=== PATIENT | female | born 1995 | race Caucasian/White ===

== ENCOUNTER 2021-08-25 13:37 | Inpatient (IN) ==
[2021-08-25] MEDS ORDERED: Lidocaine 1% 20 ML MDV INFILT PRN (13:41)
[2021-08-25] MEDS ORDERED: Ondansetron 4 MG/2 ML VIAL IVP PRN (13:41)
[2021-08-25] MEDS ORDERED: Famotidine 20 MG/2 ML VIAL IVP PRN (13:41)
[2021-08-25] MEDS ORDERED: Metoclopramide 10 MG/2 ML VIAL IVP PRN (13:41)
[2021-08-25] MEDS ORDERED: *HR* Nalbuphine 10 MG/ML AMPUL IV PRN (13:41)
[2021-08-25] MEDS ORDERED: Naloxone 0.4 MG/ML INJ IVP PRN (13:41)
[2021-08-25] MEDS ORDERED: Ringers Solution, Lactated 1,000 ML IVC SCH (13:45)
[2021-08-25] MEDS ORDERED: Penicillin G Potassium 5,000,000 UNIT in 0.9 % Sodium Chloride Mini Bag 100 ML IVPB ONE (14:36)
[2021-08-25 14:45] LABS: Basophils % 0.1 %; Eosinophils # 0.1 K/mcL (0.0-0.6); Eosinophils % 0.4 %; Hematocrit 35.3 % (35.3-44.9); Immature Granulocytes % 0.3 % (0-4); Lymphocytes # 1.5 K/mcL (0.6-4.6); Lymphocytes % 13.7 %; Mean Corpuscular HGB Conc 31.2 g/dL (31.6-35.5); Mean Corpuscular Hemoglobin 23.5 pg (28.0-33.3); Mean Corpuscular Volume 75.3 fL (83.0-100.0); Mean Platelet Volume 10.4 fL (9.4-12.4); Monocytes # 0.7 K/mcL (0.0-1.3); Monocytes % 6.1 %; Neutrophils # 8.8 K/mcL (1.6-8.9); Platelet Count 371 K/mcL (140-400); Red Blood Count 4.69 M/mcL (3.82-4.97); Red Cell Distribution Width 15.9 % (11.5-14.5); Segmented Neutrophils % 79.4 %; White Blood Count 11.1 K/mcL (4.3-11.1)
[2021-08-25 15:04] LABS: Alanine Aminotransferase 9 Units/L (7-52); Aspartate Amino Transferase 14 Units/L (13-39); BUN/Creatinine Ratio 25 (6-26); Blood Urea Nitrogen 12 mg/dL (6-20); Lactate Dehydrogenase 163 Units/L (140-271); Uric Acid 6.5 mg/dL (2.3-7.6); eGFR For African Americans > 60 (> 60); eGFR For Non-African Americans > 60 (> 60)
[2021-08-25] MEDS ORDERED: miSOPROStoL 25 MCG TABLET PO PRN (15:22)
[2021-08-25 15:29] LABS: Influenza A PCR Negative (Negative); Influenza B PCR Negative (Negative); Resp. Syncytial Virus PCR Negative (Negative)
[2021-08-25 15:42] LABS: SARS-CoV-2 by PCR (In House) Negative (Negative)
[2021-08-25 15:52] LABS: Bacteria,Urine Few per hpf (None-Few); Bilirubin,Urine Negative (Negative); Blood,Urine Negative (Negative); Clarity,Urine Turbid (Clear); Color,Urine Light-Yellow (Yellow); Glucose,Urine (UA) Normal (Normal); Ketones,Urine Negative (Negative); Leukocyte Esterase,Urine Negative (Negative); Mucus,Urine Few per lpf (None-Few); Nitrite,Urine Negative (Negative); Protein,Urine 30 mg/dL (Neg-Trace); RBC,Urine 0-3 per hpf (0-3); Specific Gravity,Urine 1.023 (1.010-1.025); Squamous Epithelial Cell,Urine Moderate per hpf (None-Few); Urobilinogen,Urine Normal (Normal)
[2021-08-25 15:59] LABS: Amphetamine Screen,Urine Negative ng/mL (Cutoff=1000); Barbiturate Screen,Urine Negative ng/mL (Cutoff=200); Benzodiazepines Screen,Urine Negative ng/mL (Cutoff=200); Cannabinoid Screen,Urine Negative ng/mL (Cutoff = 50); Cocaine Screen,Urine Negative ng/mL (Cutoff= 300); Creatinine,Urine 129 mg/dL; Opiate Screen,Urine Negative ng/mL (Cutoff=300); Phencyclidine Screen,Urine Negative ng/mL (Cutoff=25); Protein/Creatinine Ratio,Urine 0.34 mg/mg (0.00-0.20)
[2021-08-25] MEDS ORDERED: EPHEDrine 50 MG/ML VIAL IVP PRN ×2 (18:51→18:52)
[2021-08-25] MEDS ORDERED: Penicillin G Potassium 2,500,000 UNIT/105 ML MLS IVPB SCH (19:00)
[2021-08-25] MEDS ORDERED: Epidural Premix (fent/bupiv) 110 ML EP SCH (19:00)
[2021-08-25] MEDS ORDERED: Oxytocin 20 units/ LR 1000 mL 20 UNIT/1,000 ML BAG IVC SCH (20:30)
[2021-08-26] MEDS ORDERED: CeFAZolin 2,000 MG/120 ML BAG IVPB ONE
[2021-08-26] MEDS ORDERED: Ondansetron 4 MG/2 ML VIAL ONE (00:27)
[2021-08-26] MEDS ORDERED: Ketorolac 30 MG/ML VIAL ONE (00:27)
[2021-08-26] MEDS ORDERED: Acetaminophen IV 1,000 MG/100 ML BAG IVPB ONE (00:33)
[2021-08-26] MEDS ORDERED: *HR* Morphine Sulfate/PF 10 MG/10 ML AMPUL ONE (00:50)
[2021-08-26] MEDS ORDERED: 0.9 % Sodium Chloride 500 ML ONE (01:36)
[2021-08-26] MEDS ORDERED: Rho Immune Globulin 1,500 UNIT SYRINGE IM ONE (03:58)
[2021-08-26] MEDS ORDERED: Metoclopramide 10 MG/2 ML VIAL IVP PRN (03:58)
[2021-08-26] MEDS ORDERED: Ringers Solution, Lactated 1,000 ML IVC SCH (03:58)
[2021-08-26] MEDS ORDERED: Ondansetron 4 MG/2 ML VIAL IVP PRN (03:58)
[2021-08-26] MEDS ORDERED: Oxytocin 20 units/ LR 1000 mL 20 UNIT/1,000 ML BAG IVC SCH ×2 (03:58)
[2021-08-26] MEDS ORDERED: Simethicone 80 MG TAB.CHEW PO PRN (03:58)
[2021-08-26] MEDS: Acetaminophen 325 MG TABLET PO SCH ×3 (04:25→21:37)
[2021-08-26] MEDS: Ibuprofen 600 MG TABLET PO SCH ×3 (04:26→21:37)
[2021-08-26] MEDS: cephALEXin 500 MG CAPSULE PO SCH ×3 (08:55→21:36)
[2021-08-26] MEDS: Prenatal Vit/FA 1 EACH TABLET PO SCH (08:55)
[2021-08-26] MEDS: metroNIDAZOLE 500 MG TABLET PO SCH ×3 (08:55→21:36)
[2021-08-26 09:38] LABS: Basophils % 0.1 %; Eosinophils % 0.1 %; Hematocrit 28.5 % (35.3-44.9); Hemoglobin 8.8 g/dL (11.5-15.4); Immature Granulocytes % 0.5 % (0-4); Lymphocytes # 1.2 K/mcL (0.6-4.6); Lymphocytes % 7.2 %; Mean Corpuscular HGB Conc 30.9 g/dL (31.6-35.5); Mean Corpuscular Volume 77.7 fL (83.0-100.0); Mean Platelet Volume 10.3 fL (9.4-12.4); Monocytes # 0.7 K/mcL (0.0-1.3); Monocytes % 4.4 %; Neutrophils # 14.5 K/mcL (1.6-8.9); Platelet Count 300 K/mcL (140-400); Red Blood Count 3.67 M/mcL (3.82-4.97); Red Cell Distribution Width 16.2 % (11.5-14.5); Segmented Neutrophils % 87.7 %; White Blood Count 16.5 K/mcL (4.3-11.1)
[2021-08-26] MEDS: *HR* Enoxaparin 60 MG/0.6 ML SYRINGE SQ SCH ×2 (11:59→21:35)
[2021-08-27] MEDS: Ibuprofen 600 MG TABLET PO SCH ×3 (06:18→22:04)
[2021-08-27] MEDS: Acetaminophen 325 MG TABLET PO SCH ×2 (06:18→22:04)
[2021-08-27] MEDS: metroNIDAZOLE 500 MG TABLET PO SCH ×3 (07:45→22:04)
[2021-08-27] MEDS: Prenatal Vit/FA 1 EACH TABLET PO SCH (07:45)
[2021-08-27] MEDS: cephALEXin 500 MG CAPSULE PO SCH ×3 (07:46→22:03)
[2021-08-27] MEDS: *HR* Enoxaparin 60 MG/0.6 ML SYRINGE SQ SCH ×2 (07:46→22:01)
[2021-08-27] MEDS: *HR* OxyCODONE Immed Rel 5 MG TABLET PO PRN (15:56)
[2021-08-28 03:07] VITALS: O2SAT 98
[2021-08-28] MEDS: Acetaminophen 325 MG TABLET PO SCH (03:43)
[2021-08-28] MEDS: *HR* OxyCODONE Immed Rel 5 MG TABLET PO PRN (03:43)
[2021-08-28] MEDS: Ibuprofen 600 MG TABLET PO SCH (03:43)
[2021-08-28 07:59] VITALS: BP 114/68; PULSE 90; TEMP 98
[2021-08-28] MEDS: Prenatal Vit/FA 1 EACH TABLET PO SCH (08:19)
[2021-08-28] MEDS: *HR* Enoxaparin 60 MG/0.6 ML SYRINGE SQ SCH (09:14)
== END 2021-08-28 12:18 | disposition home or self-care (01) | DRG 540 ==
LOC: 1NENULAB 13:37 → 1NENUOBS 08-26 03:56
PROVIDERS: ADMIT Advanced Practice Midwife; ATTEND Advanced Practice Midwife